=== PATIENT | female | born 1985 | race Caucasian/White ===

== ENCOUNTER 2016-10-21 18:37 | Emergency (ER) | payer SELFPAY ==
[~2016-10-21] VITALS: Ht 167.6 cm; Wt 88.0 kg
[~2016-10-21 18:37] MED LIST: NORE1TAB99
[2016-10-21 19:01] VITALS: BP 107/55
== END 2016-10-21 23:57 | disposition left against medical advice (07) ==
LOC: ER 18:37
DX: Z53.21 Procedure and treatment not carried out due to patient leaving prior to being seen by health care provider (principal)

== ENCOUNTER 2022-01-19 03:10 | Emergency (ER) | payer SELFPAY ==
[~2022-01-19] VITALS: Ht 167.6 cm; Wt 91.0 kg
[2022-01-19 03:12] VITALS: BP 137/63
[2022-01-19] MEDS ORDERED: IBUPROFEN 600MG TABLET PO ONE (06:15)
[2022-01-19 06:45] LABS: CLARITY URINE TURBID (CLEAR); COLOR URINE YELLOW (YELLOW); KETONES URINE 1+ (NEGATIVE); LEUKOCYTE ESTERASE URINE NEGATIVE (NEGATIVE); NITRITE URINE NEGATIVE (NEGATIVE); OCCULT BLOOD URINE 3+ (NEGATIVE); PH URINE 5.5 (4.5-8.0); PROTEIN URINE TRACE (NEGATIVE); SPECIFIC GRAVITY URINE 1.026 (1.005-1.030); UROBILINOGEN URINE 0.2 E.U./dL (0.2-1.0)
[2022-01-19] MEDS ORDERED: IBUP-2029 MT (08:29)
== END 2022-01-19 08:48 | disposition home or self-care (01) ==
LOC: ER 03:10
DX: N23 Unspecified renal colic (principal)
CPT/HCPCS: 74176; 81003; 81025; 99284